=== PATIENT | male | born 1945 | race Caucasian/White ===

== ENCOUNTER → 2017-02-11 | Outpatient (CLI) | payer OTHER | END | disposition home or self-care (01) | LOC: PCVCIMAG 10:00 | PROVIDERS: ATTEND Internal Medicine | DX: I25.10 Atherosclerotic heart disease of native coronary artery without angina pectoris (principal); I50.9 Heart failure, unspecified; I25.5 Ischemic cardiomyopathy; I65.29 Occlusion and stenosis of unspecified carotid artery; E78.5 Hyperlipidemia, unspecified; Z87.891 Personal history of nicotine dependence | CPT/HCPCS: 80061; 93005; 93306; G0463 ==

== ENCOUNTER → 2017-08-05 | Outpatient (CLI) | payer OTHER | END | disposition home or self-care (01) | LOC: PCVCCLINIC 11:10 | PROVIDERS: ATTEND Internal Medicine | DX: I11.0 Hypertensive heart disease with heart failure (principal); I50.22 Chronic systolic (congestive) heart failure; I25.2 Old myocardial infarction; E78.5 Hyperlipidemia, unspecified; R94.31 Abnormal electrocardiogram [ECG] [EKG]; R00.1 Bradycardia, unspecified; Z79.82 Long term (current) use of aspirin; Z79.899 Other long term (current) drug therapy; Z87.891 Personal history of nicotine dependence | CPT/HCPCS: 80061; 93005; G0463 ==

== ENCOUNTER → 2018-02-02 | Outpatient (CLI) | payer OTHER | END | disposition home or self-care (01) | LOC: PCVCCLINIC 10:48 | DX: I11.0 Hypertensive heart disease with heart failure (principal); I50.22 Chronic systolic (congestive) heart failure; E78.5 Hyperlipidemia, unspecified; I25.119 Atherosclerotic heart disease of native coronary artery with unspecified angina pectoris; I25.5 Ischemic cardiomyopathy; I25.2 Old myocardial infarction; Z87.891 Personal history of nicotine dependence; Z79.899 Other long term (current) drug therapy; Z88.8 Allergy status to other drugs, medicaments and biological substances | CPT/HCPCS: 80061; 93005; G0463 ==

== ENCOUNTER → 2018-08-14 | Outpatient (CLI) | payer OTHER ==
--- NOTE | 2018-08-14 14:42 | PCVCIMAG ---
APPROVED REPORT Imaging Protocol: Rest Tc-99m/Stress Tc-99m 1 day Study performed: 08/14/2018 09:08:24 Indication: CAD , Dyspnea, ICM Patient Location: Out-Patient Stress Nurse: Yoselyn Brice RN, Shani Esquivel RN GA Tech:Angelina [facility] Ht: 5 ft 11 in Wt: 230 lbs BSA: 2.24 m2 HR: 93 bpm BP: 139/80 mmHg BMI: 32.0 Rhythm: Sinus Rhythm, Left Anterior Fascicular Block Medical History Medical History: CAD, HTN, Hyperlipidemia, Former Smoker, CO Medications: ASA, Atorvastatin, Losartan, Metoprolol Allergies: No known drug allergies Cardiac Risk Factors: Age Previous Cardiac Procedures: PCI in 1999 - Stent to LAD Pretest Chest Pain Characteristics: No chest pain Exercise History: Physically active Meds Held (24 hrs): Metoprolol Resting Data Rest SPECT myocardial perfusion imaging was performed in supine position 45 minutes following the intravenous injection of 10.7 mCi of Tc-99m Tetrofosmin. Time of rest injection: 819 Date: 08/14/2018 Administration Route: IV Administration Site: Right Hand Exercise Stress At peak stress, the patient was injected intravenously with 30.7mCi of Tc-99m Sestamibi. Time of stress injection: 944 Date: 08/14/2018 Administration Route: IV Administration Site: Right Hand Patient continued to exercise for 1 minute(s). Gated Stress SPECT was performed 45 minutes after stress injection. The images were gated to evaluate regional wall motion and calculate left ventricular ejection fraction. Stress Test Details Stress Test: Exercise stress testing was performed using a Ronaldo protocol. HRMax Heart Rate (APMHR): 149 bpm Resting HR: 93 bpmTarget HR (85% APMHR): 126 bpm Max HR Achieved: 155 bpm % of APMHR: 104 Recovery HR: 98 bpm BP Resting BP: 139/80 mmHg Max BP: 152/72 mmHg Recovery BP: 145/70 mmHg ECG Resting ECG: Sinus Rhythm, Left Anterior Fascicular Block Stress ECG: Sinus Tachycardia, Left Anterior Fascicular Block ST Change: None Maximum ST Deviation: 0 mm Arrhythmia: None Recovery ECG: Sinus Rhythm, Left Anterior Fascicular Block Recovery ST Change: None Recovery ST Deviation: 0 mm Recovery Arrhythmia: None Clinical Reason for Termination: Fatigue, Dyspnea Stress Symptoms: None Exercise duration: 8 min 31 sec Exercise capacity: 10.10 METs Overall Exercise Capacity for Age: Good Angina Score: None Stress ECG Conclusion ECG: Non-ischemic Clinical: Non-ischemic Romero Treadmill Score is 8.0 which is Low risk. Study Quality Study: Good Study Data Post stress, the left ventricular ejection was 57%.. SSS: 20 SRS: 21 SDS: 0 TID = 0.88. 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 No evidence of stress induced ischemia. 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 No evidence of stress induced ischemia. Post stress, the left ventricular ejection was 57%. No change since prior study dated February 2016. Interpreted by: Yoel Ferguson MD Electronically Approved: 08/14/2018 14:33:02 <Conclusion> ECG: Non-ischemic Clinical: Non-ischemic
== END | disposition home or self-care (01) ==
LOC: PCVCIMAG 08:56
PROVIDERS: ATTEND Internal Medicine
DX: I25.10 Atherosclerotic heart disease of native coronary artery without angina pectoris (principal); R06.09 Other forms of dyspnea; I10 Essential (primary) hypertension; E78.5 Hyperlipidemia, unspecified; Z87.891 Personal history of nicotine dependence
CPT/HCPCS: 78452; 93017; A9500